=== PATIENT | female | born 1980 | race Caucasian/White ===

== ENCOUNTER 2017-11-05 10:56 | Emergency (ER) | payer BC ==
[2017-11-05 13:27] VITALS: BP 116/83
--- NOTE | 2017-11-05 13:31 | UC ---
Complaint Female HPI - HPI Summary HPI Summary: 37 y/o female presents to the urgent care c/o vaginal discharge for the past 3 days with a lump in her anus she recently noticed. She also has mild frequency on urination with pelvic pressure, but no pain. Pt would like to screen for STD' s seen she has been sexually active with a new partner lately. LMP 10/22/2017 with irregular menstrual cycle. Hx of chlamydia many years ago which resolved. Pt denies lower back pain, anal pain, blood in the stool, abdominal pain, N/V/D , constipation. - History Of Current Complaint Chief Complaint: UCGU Stated Complaint: URINARY,PERSONAL Time Seen by Provider: 11/05/17 13:28 Hx Obtained From: Patient Hx Last Menstrual Period: 2 weeks ago Onset/Duration: Gradual Onset, Lasting Days - 3 days, Still Present Timing: Constant Severity Initially: Mild Severity Currently: Moderate Pain Intensity: 0 Pain Scale Used: 0-10 Numeric Character: Not Applicable Aggravating Factor(s): Urination Associated Signs And Symptoms: Positive: Vaginal Discharge. Negative: Back Pain - Risk Factors Ectopic Risk Factor: Negative Ovarian Torsion Risk Factor: Negative - Allergies/Home Medications Allergies/Adverse Reactions: Allergies Allergy/AdvReac Type Severity Reaction Status Date / Time Penicillins Allergy Hives Verified 11/05/17 13:21 PMH/Surg Hx/FS Hx/Imm Hx Previously Healthy: Yes - Pt denies PMHX - Surgical History Surgical History: None - Family History Known Family History: Positive: Hypertension Family History: Dyslipidemia - Social History Occupation: Employed Full-time Lives: With Family Alcohol Use: Rare Substance Use Type: None Smoking Status (MU): Light Every Day Tobacco Smoker Type: Cigarettes Amount Used/How Often: 8 cigarettes daily Review of Systems Constitutional: Negative Skin: Negative Eyes: Negative ENT: Negative Respiratory: Negative Cardiovascular: Negative Gastrointestinal: Negative Genitourinary: Frequency, Vaginal/Penile Discharge, Other - anal bump Motor: Negative Neurovascular: Negative Musculoskeletal: Negative Neurological: Negative Psychological: Negative Is Patient Immunocompromised?: No All Other Systems Reviewed And Are Negative: Yes Physical Exam Triage Information Reviewed: Yes Vital Signs: Initial Vital Signs Temp 99.5 F 11/05/17 13:22 Pulse 101 11/05/17 13:22 Resp 20 11/05/17 13:22 BP 116/83 11/05/17 13:22 Pulse Ox 100 11/05/17 13:22 - Additional Comments Vital signs: reviewed General: well developed well nourished female sitting in the examining table w/ o any apparent distress. Head: Normocephalic, no lesions. Eyes: PERRLA, EOM's full, conjunctiva clear, fundi grossly normal. Ears: EAC's clear, TM's normal. Nose: Mucosa normal, no obstruction. Throat: Clear, no exudates, no lesions. Neck: Supple, no masses, no thyromegaly, no bruits. Chest: Lungs clear, no rales, no rhonchi, no wheezes. Heart: RR, no murmurs, no rubs, no gallops. Abdomen: Soft, no tenderness, no masses, BS normal. : Normal, no lesions, no discharge, no hernias noted. Pelvic: I was assisted ny Nurse Miri. External genitalia within normal limits. There is no lesions there is no masses noted. Speculum exam: The vaginal mondragon are within normal limits w/ normal white vaginal discharge, no the lesions or rashes. The cervix is closed similar discharged and strawberry like cervix, no masses. There is no CMT's, and no adnexal masses. Sample sent Lab G/C and affirm panel. Rectal: No lesions, exteranal hemorrhoids around 6 o'clock non tender to palpation, no swelling, no blood observed, Back: Normal curvature, no tenderness. Extremities: FROM, no deformities, no edema, no erythema. Neuro: Physiological, no localizing findings. Skin: Normal, no rashes, no lesions noted. Complaint Female Dx - Course Course Of Treatment: 37 y/o female presents to the urgent care c/o vaginal discharge for the past 3 days with a lump in her anus she recently noticed. She also has mild frequency on urination with pelvic pressure, but no pain. Pt would like to screen for STD's seen she has been sexually active with a new partner lately. LMP 10/22/2017 with irregular menstrual cycle. Hx of chlamydia many years ago which resolved. Pt denies lower back pain, anal pain, blood in the stool, abdominal pain, N/V/D, constipation. Hx obtained. Pt with a white vaginal discharge, an external hemorroid and strawberry cervix on pelvic examination. Sample sent to Lab for G/C, trichomonas and affirm panel. UA: negative. test:negative. Pt Rx Metrogel and Metronidazole to Tx prophylactically Trimononas since abnormal cervix. Pt educated on STD's and protection. Given referral for [facility] for further management on STD's and PAP. Advised on dietary modifications to avoid constipation. Advised she will be notified if any abnormal result from lab. Pt understood and agreed with plan of care. - Differential Dx/Diagnosis Differential Diagnosis/HQI/PQRI: Cervicitis, Pelvic Inflammatory Disease, , Renal Colic, Sexually Transmitted Disease, Ureteral Stone, Urinary Tract Infection Provider Diagnoses: 1- Bacterail vaginosis. 2-Screening for STD's. 3- External hemorrhoid Discharge - Discharge Plan Condition: Stable Disposition: HOME Prescriptions: Metronidazole [Flagyl 500 MG TAB] 2,000 mg PO ONCE #4 tab metroNIDAZOLE VAGINAL 0.75%* 1 applic VAGINAL BEDTIME #1 moris Patient Education Materials: Bacterial Vaginosis (ED), Hemorrhoids (ED) Referrals: [facility] [Outside] - 1 Week Additional Instructions: 1-Please f/u with HISTOLOGY AIDE for a PAP since there is abnormal changes in your cervix as soon as possible for further management. 2- Please take medications as directed.avoid sexual intercourse while taking medication. 3- Specimen were sent to lab, if anything abnormal you will receive a call from us for further treatment. 4-If not improvement of symptoms please return to the urgent care or f/u with your HISTOLOGY AIDE for further treatment 5- Please go to [facility] for further STD's screening
== END 2017-11-05 14:52 | disposition home or self-care (01) ==
LOC: UCCORT 10:56
DX: N76.0 Acute vaginitis (principal); Z11.3 Encounter for screening for infections with a predominantly sexual mode of transmission; K64.4 Residual hemorrhoidal skin tags; Z88.0 Allergy status to penicillin; F17.210 Nicotine dependence, cigarettes, uncomplicated
CPT/HCPCS: 81003; 84702; 87480; 87491; 87510; 87591; 87661; 99212; G0463

== ENCOUNTER 2018-06-06 11:10 | Emergency (ER) | payer BC ==
--- OUTSIDE RECORDS SUMMARY | 2018-06-06 11:41 | XMS REPORT ---
:1980 External Reference #:[id number] Author Organization Jono Escobar M.D. Address [address] [place] [address] Phone [phone] Care Team Providers Name Role Phone Jono Escobar M.D. 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 [employer] Work Status Full-Time Employment Hand Dominance Right-Handed ETOH Use Rarely consumes alcohol Smoking 01/07/2014 Light tobacco smoker (10 or fewer cigarettes/day) Recreational Drug Use Never Used Drugs Daily Caffeine Consumes on average 3 cups of hot tea per day Tattoo/Piercing Pierced ears Allergies, Adverse Reactions, Alerts Date Description Reaction Status Severity Comments 05/05/2017 NKDA active 05/05/2017 Seasonal active Medications Medication Date Status Form Strength Qnty SIG Indications Ordering Provider Ondansetron Active Tablets 4mg 6tabs 1 tablet R11.0 Jono HCL 018 by mouth Vazquez every 8 s, M.D. hours as needed for nausea Melatonin ER Active Tablets 10mg every Jono 017 ER night Vazquez before bed s, M.D. Chantix Active Tablets 0.5mg X 11 53tabs use as Jono Starting Month 017 & 1 mg X directed Vazquez Roman 42 Santiago puga Necon 1/35 Hx Tablets 1-35mg-mcg 1 po qd Jono 014 - Vazquez Santiago puga 017 Amoxicillin Hx Tablets 875mg 20tabs 1 by mouth 462 Jono 014 - twice a Vazquez day Santiago puga 017 Immunizations CPT Code Status Date Vaccine Lot # [id number] Given 07/15/2000 OPV Polio 69556 Given 07/15/2000 MMR 43458 Given 05/25/1995 [place] & [place] [address] Given 01/02/1983 OPV Polio 70146 Given 01/02/1983 DTP 58417 Given 11/11/1982 MMR 75844 Given 1980 DTP 14014 Given 1980 OPV Polio 04066 Given 1980 DTP 88588 Given 1980 OPV Polio 97326 Given 1980 DTP Vital Signs Date Vital Result Comment 05/09/2018 Weight 92.00 lb BP Systolic 90 mmHg BP Diastolic 40 mmHg 05/05/2017 Weight 89.00 lb BP Systolic 90 mmHg BP Diastolic 40 mmHg Height 63 inches 5'3" Heart Rate 68 /min Body Temperature 97.8 F Respiratory Rate 12 /min BMI (Body Mass Index) 15.8 kg/m2 01/07/2014 Weight 91.00 lb BP Systolic 90 mmHg BP Diastolic 40 mmHg Body Temperature 99.4 F Results Test Date Test Result H/L Range Note Basic Metabolic Panel 05/06/2017 Sodium 136 mmol/L 133-145 Potassium 4.0 mmol/L 3.5-5.0 Chloride 106 mmol/L 101-111 Co2 Carbon Dioxide 25 mmol/L 22-32 Anion Gap 5 mmol/L 2-11 Glucose 81 mg/dL 70-100 Blood Urea Nitrogen 12 mg/dL 6-24 Creatinine 0.75 mg/dL 0.51-0.95 BUN/Creatinine Ratio 16.0 8-20 Calcium 8.9 mg/dL 8.6-10.3 Egfr Non- 87.9 >60 Egfr 113.1 >60 1 CBC Auto Diff 05/06/2017 White Blood Count 4.8 10^3/uL 3.5-10.8 Red Blood Count 4.45 10^6/uL 4.0-5.4 Hemoglobin 15.2 g/dL 12.0-16.0 Hematocrit 46 % 35-47 Mean Corpuscular Volume 103 fL High 80-97 Mean Corpuscular Hemoglobin 34 pg High 27-31 Mean Corpuscular HGB Conc 33 g/dL 31-36 Red Cell Distribution Width 12 % 10.5-15 Platelet Count 150 10^3/uL 150-450 Mean Platelet Volume 10 um3 7.4-10.4 Abs Neutrophils 2.8 10^3/uL 1.5-7.7 Abs Lymphocytes 1.5 10^3/uL 1.0-4.8 Abs Monocytes 0.3 10^3/uL 0-0.8 Abs Eosinophils 0.2 10^3/uL 0-0.6 Abs Basophils 0 10^3/uL 0-0.2 Abs Nucleated RBC 0 10^3/uL Granulocyte % 59.0 % 38-83 Lymphocyte % 30.1 % 25-47 Monocyte % 6.8 % 1-9 Eosinophil % 3.8 % 0-6 Basophil % 0.3 % 0-2 Nucleated Red Blood Cells % 0.1 Lipid Profile (Trig/Chol/HDL) 05/06/2017 Triglycerides 72 mg/dL 2 Cholesterol 159 mg/dL 3 HDL Cholesterol 63.6 mg/dL 4 LDL Cholesterol 81 mg/dL 5 Liver Function Panel 05/06/2017 Total Protein 6.8 g/dL 6.4-8.9 Albumin 4.4 g/dL 3.2-5.2 Globulin 2.4 g/dL 2-4 Albumin/Globulin Ratio 1.8 1-3 Total Bilirubin 0.60 mg/dL 0.2-1.0 Alkaline Phosphatase 65 U/L 34-104 Alt 12 U/L 7-52 Ast 16 U/L 13-39 Direct Bilirubin 0.10 mg/dL 0.03-0.18 Indirect Bilirubin 0.5 mg/dL 0.3-1.0 Laboratory test finding 05/06/2017 Varicella-Zoster IgM Negative Negative 6 Antibody Syphilis IgG w/reflex RPR Nonreactive Nonreactive 7 Hepatitis Acute Panel 05/06/2017 Hepatitis B Surface Nonreactive Nonreactive Antigen Hepatitis A AB IgM Nonreactive Nonreactive Hepatitis C Antibody Nonreactive Nonreactive Hepatitis B Core IgM Nonreactive Nonreactive HIV 1/2 AB Evaluation 05/06/2017 HIV 1 2 Antibody Nonreactive Nonreactive 8 GC/Chlamydia Amplified 05/05/2017 Chlamydia trachomatis Negative Negative 9 Rna Rna Neisseria gonorrhoeae (GC) Rna Negative Negative 9 Laboratory test finding 01/07/2014 Throat Strep Screen See Note 10 1 Because ethnic data is not always readily available, this report includes an eGFR for both -Americans and non- Americans. The National Kidney Disease Education Program (NKDEP) does not endorse the use of the MDRD equation for patients that are not between the ages of 18 and 70, are , have extremes of body size, muscle mass, or nutritional status, or are non- or non-. According to the National Kidney Foundation, irrespective of diagnosis, the stage of the disease is based on the level of kidney function: Stage Description GFR(mL/min/1.73 m(2)) 1 Kidney damage with normal or decreased GFR 90 2 Kidney damage with mild decrease in GFR 60-89 3 Moderate decrease in GFR 30-59 4 Severe decrease in GFR 15-29 5 Kidney failure <15 (or dialysis) 2 Desirable <150 Borderline high 150-199 High 200-499 Very High >500 3 Desirable <200 Borderline high 200-239 High >239 4 Low <40 Desirable: 40-60 High: >60 5 Desirable: <100 mg/dL Near Optimal: 100-129 mg/dL Borderline High: 130-159 mg/dL High: 160-189 mg/dL Very High: >189 mg/dL 6 Test Performed by: [place] [address] 7 Warning: A positive result is not useful for establishing a diagnosis of syphilis. In most situations, such a result may reflect a prior treated infection; a negative result can exclude a diagnosis of syphilis except for incubating or early primary disease. 8 It is recognized that currently available assays for the detection of antibodies to HIV-1 and/or HIV-2 may not detect all infected individuals. HIV antibodies may be undetectable in some stages of the infection and in some clinical conditions. The performance of this assay has not been established for populations of infants or children. Assayed by Chemiluminescence Microparticle Immunoassay on the Siemens Advia Centaur CP. Values obtained with different methods or kits cannot be used interchangeably.The diagnostic specificity of the ADVIA Centaur 1/O/2 Enhanced assay in the low risk population was 99.90% (6052/6058) with a 95% confidence interval of 99.78 to 99.96%. 9 [id number] 10 Organism 1 ! BETA STREPTOCOCCUS GROUP A QUANTITY ! MODERATE RECOMMENDED THERAPY: ! PENICILLIN OR AMPICILLIN. ALTERNATIVE THERAPY: ! ERYTHROMYCIN MAY BE USED IN PENICILLIN ALLERGIC ! INDIVIDUALS Procedures Description No Information Encounters Type Date Location Provider CPT E/M Dx Office Visit 05/09/2018 3:00p [place] [address] R11.0 R19.7 R30.0 E86.0 Office Visit 05/05/2017 10:30a [place] [address] Z00.01 Z71.6 Z20.2 Z12.12 Office Visit 01/07/2014 1:15p [place] [address] [phone] Office Visit 11/27/2009 8:15a Main Office Jono Escobar M.D. 35[address] 465.9 Office Visit 11/04/2008 8:30a [place] [address] 789.00 Office Visit 11/01/2008 9:15a [place] [address] 789.00 228.00 530.81 787.02 Plan of Care 05/09/2018 - Jenny Hyatt PAR11.0 NauseaNew Medication:Ondansetron HCL 4 mgNew Labs:Urine Culture And HxzjizituabwiQ63.7 Diarrhea, jxxkmyqwuwtX20.0 OojewauS59.0 Dehydration
[2018-06-06 12:14] VITALS: BP 121/85
--- NOTE | 2018-06-06 12:32 | UC ---
Skin Complaint HPI - HPI Summary HPI Summary: insect bite left arm and right hand x 2 days the area is red, swollen, itchy and tender no fever, no chills , no sob - History of Current Complaint Chief Complaint: UCSkin Time Seen by Provider: 06/06/18 12:21 Stated Complaint: SPIDER BITE Hx Obtained From: Patient Hx Last Menstrual Period: 06/04/18 ?: No Onset/Duration: Gradual Onset, Lasting Days - 2, Still Present Timing: Constant Onset Severity: Moderate Current Severity: Moderate Pain Intensity: 7 Location: Other - left arm and right hand Character: Swelling, Pruritus, Pain, Redness, Raised, Painful Aggravating Factor(s): Touch Alleviating Factor(s): Nothing Associated Signs & Symptoms: Positive: Tenderness. Negative: Fever, Chills, Cough, Wheezing - Allergy/Home Medications Allergies/Adverse Reactions: Allergies Allergy/AdvReac Type Severity Reaction Status Date / Time Penicillins Allergy Hives Verified 06/06/18 12:09 Home Medications: Home Medications Loratadine 10 mg PO DAILY 06/06/18 [History Confirmed 06/06/18] diPHENhydraMINE 2% CREAM(NF) [Benadryl 2% CREAM (NF)] 1 applic TOPICAL DAILY [History Confirmed 06/06/18] Review of Systems Constitutional: Negative Skin: Rash Eyes: Negative ENT: Negative Respiratory: Negative Cardiovascular: Negative Is Patient Immunocompromised?: No All Other Systems Reviewed And Are Negative: Yes PMH/Surg Hx/FS Hx/Imm Hx Previously Healthy: Yes - Surgical History Surgical History: None - Family History Known Family History: Positive: Hypertension Family History: Dyslipidemia - Social History Alcohol Use: Rare Substance Use Type: None Smoking Status (MU): Light Every Day Tobacco Smoker Type: Cigarettes Amount Used/How Often: 8 cigarettes daily Household Exposure Type: Cigarettes Physical Exam Triage Information Reviewed: Yes Appearance: Well-Appearing, No Pain Distress, Well-Nourished Vital Signs: Initial Vital Signs Temp 97.8 F 06/06/18 12:08 Pulse 68 06/06/18 12:08 Resp 15 06/06/18 12:08 BP 121/85 06/06/18 12:08 Pulse Ox 100 06/06/18 12:08 Vital Signs Reviewed: Yes Eye Exam: Normal Eyes: Positive: Conjunctiva Clear ENT: Positive: Normal ENT inspection, Hearing grossly normal, Pharynx normal Neck: Positive: Supple, Nontender, No Lymphadenopathy Respiratory: Positive: Chest non-tender, Lungs clear, Normal breath sounds Cardiovascular: Positive: RRR, No Murmur, Pulses Normal Skin: Positive: rashes - papulary rash , + erythema, tenderness left forearm and left hand Course/Dx - Diagnoses Provider Diagnoses: inscet bite left arm. insect bite left hand Discharge - Sign-Out/Discharge Documenting (check all that apply): Patient Departure All imaging exams completed and their final reports reviewed: No Studies - Discharge Plan Condition: Stable Disposition: HOME Prescriptions: Triamcinolone 0.1% CREAM (NF) [Kenalog 0.1% Cream (NF)] 1 applic .SEE ORDER BID #30 gm Patient Education Materials: Insect Bite or Sting (ED) Referrals: Jono Escobar MD [Primary Care Provider] - If Needed - Billing Disposition and Condition Condition: STABLE Disposition: Home
== END 2018-06-06 12:37 | disposition home or self-care (01) ==
LOC: UCCORT 11:10
DX: S60.561A Insect bite (nonvenomous) of right hand, initial encounter (principal); S40.862A Insect bite (nonvenomous) of left upper arm, initial encounter; Z88.0 Allergy status to penicillin; F17.210 Nicotine dependence, cigarettes, uncomplicated; W57.XXXA Bitten or stung by nonvenomous insect and other nonvenomous arthropods, initial encounter; Y92.9 Unspecified place or not applicable
CPT/HCPCS: 99212; G0463